=== PATIENT | female | born 1975 | race Two or more races ===

== ENCOUNTER 2021-02-02 09:51 | Outpatient (CLI) | payer OTHER ==
[~2021-02-02 09:51] MED LIST: NO TOMA MEDICAMENTOS; VALTREX1000 MG PO
== END 2021-02-02 09:55 | disposition home or self-care (01) ==
LOC: SONOGRAMA 09:51
PROVIDERS: ATTEND Pathology Anatomic Pathology & Clinical Pathology
DX: E04.1 Nontoxic single thyroid nodule (principal)

== ENCOUNTER 2023-05-06 13:03 | Emergency (ER) | payer OTHER ==
[~2023-05-06] VITALS: Ht 160 cm; Wt 60.8 kg
[2023-05-06] MEDS ORDERED: SYNTHROID75 MCG PO (13:28)
[2023-05-06] MEDS ORDERED: ROSUVASTATIN CAL5 MG PO (13:29)
== END 2023-05-06 17:29 | disposition home or self-care (01) ==
LOC: ER 13:03
DX: R10.31 Right lower quadrant pain (principal); N83.201 Unspecified ovarian cyst, right side; E03.9 Hypothyroidism, unspecified

== ENCOUNTER 2025-02-17 08:06 | Emergency (ER) | payer OTHER ==
[~2025-02-17] VITALS: Ht 160 cm; Wt 60.3 kg
[~2025-02-17 08:06] MED LIST changes: +ROSUVASTATIN CAL5 MG PO; +SYNTHROID75 MCG PO
[2025-02-17 08:11] VITALS: BP 107/71; O2SAT 100
[2025-02-17] MEDS ORDERED: DEXAMETHASONE SODIUM PHOSPHATE 4 MG/ML VIAL IM STA (09:01)
[2025-02-17] MEDS ORDERED: MECLIZINE HCL 25 MG TABLET PO STA (09:04)
[2025-02-17] MEDS ORDERED: MECLIZINE HCL 25 MG TABLET PO ONE (09:12)
[2025-02-17] MEDS ORDERED: DEXAMETHASONE SODIUM PHOSPHATE 4 MG/ML VIAL ONE (09:12)
[2025-02-17 09:33] LABS: HEMATOCRIT 42.5 % (36.0-45.00); HEMOGLOBIN 14.3 g/dL (12.0-15.00); MEAN CELL VOLUME 100.3 fL (80.00-100.00); MEAN CORPUSCULAR HEMOGLOBIN 33.7 pg (27.00-32.0); MEAN CORPUSCULAR HGB CONC 33.6 g/dl (32.0-36.0); PLATELET COUNT 241 K/uL (150-450); RED BLOOD COUNT 4.24 M/uL (4.00-6.00); RED CELL DISTRIBUTION WIDTH 13.8 % (11.5-14.5)
== END 2025-02-17 12:33 | disposition home or self-care (01) ==
LOC: ER 08:06
PROVIDERS: General Practice
DX: R42 Dizziness and giddiness (principal)

== ENCOUNTER 2025-06-27 14:39 | Emergency (ER) | payer OTHER ==
[~2025-06-27] VITALS: Ht 160 cm; Wt 59.9 kg
[2025-06-27] MEDS ORDERED: 0.9 % SODIUM CHLORIDE 500 ML IV ONE (16:45)
[2025-06-27 17:03] LABS: BASO % 0.9 % (0.1-1.2); EOS # 0.16 (0.04-0.54); EOS % 2.1 % (0.7-7.0); LYMPH # 2.17 (1.18-3.74); LYMPH % 28.5 % (19.3-53.1); MEAN PLATELET VOLUME 10.00 fl (9.4-12.4); MONO # 0.41 (0.24-0.82); MONO % 5.4 % (4.7-12.5); NEUT # 4.79 (1.56-6.13); NEUT % 63.0 % (34.0-71.1); RED CELL DISTRIBUTION WIDTH 14.0 % (11.6-14.4)
[2025-06-27 17:22] LABS: INR 1.0
[2025-06-27 17:30] LABS: ALT/SGPT 29.0 U/L (12-78); AST/SGOT 33.0 U/L (15-37); BILIRUBIN TOTAL 0.81 mg/dL (0.3-1.2); BUN CREA RATIO 26.0 (7.0-25.0); CREATININE SERUM 0.93 mg/dL (0.55-1.02); GFR 63.56; GLOBULINA 3.6 G/DL (2.4-3.5); GLUCOSE FASTING 112.0 mg/dL (65-100); OSMOLALITY SERUM 290.0 MOSM/KG (275-295)
[2025-06-27 18:02] LABS: URINE APPEARANCE Clear; URINE BILIRRUBIN Negative (NEGATIVE); URINE BLOOD Negative; URINE COLOR Yellow; URINE GLUCOSE Negative (NEGATIVE); URINE KETONE Trace (NEGATIVE); URINE LEUKOCYTE Negative; URINE NITRATE Negative; URINE PROTEIN Trace (NEGATIVE); URINE UROBILINOGEN 1.0 E.U./dl
[2025-06-27 18:05] LABS: URINE BACTERIA 11.9 uL (0.0-1933); URINE EPITHELIAL CELLS 44.1 uL (0.0-38.8); URINE RBC 65.5 uL (0.0-20.8); URINE WBC 2.7 uL (0.0-23.2)
[2025-06-27 18:06] LABS: URINE CAST 0.29 uL (0.0-1.40)
== END 2025-06-27 20:15 | disposition home or self-care (01) ==
LOC: ER 14:56
PROVIDERS: Emergency Medicine
DX: R10.31 Right lower quadrant pain (principal); K59.00 Constipation, unspecified; K76.89 Other specified diseases of liver; E03.9 Hypothyroidism, unspecified